=== PATIENT | female | born 1980 | race Two or more races ===

== ENCOUNTER 2025-02-23 12:55 | Emergency (ER) | payer OTHER ==
[~2025-02-23] VITALS: Ht 165.1 cm; Wt 62.6 kg
[2025-02-23] MEDS ORDERED: NORFLEX100MG PO (19:13)
== END 2025-02-23 20:16 | disposition home or self-care (01) ==
LOC: ER 12:55
DX: G89.11 Acute pain due to trauma (principal); G44.309 Post-traumatic headache, unspecified, not intractable; M54.2 Cervicalgia; M54.50 Low back pain, unspecified; Z88.0 Allergy status to penicillin